=== PATIENT | female | born 1955 | race Caucasian/White ===

== ENCOUNTER 2022-08-21 05:35 | Day surgery (SDC) | payer OTHER ==
[~2022-08-21] VITALS: Ht 162.6 cm; Wt 98.0 kg
[~2022-08-21 05:35] MED LIST: CEFAZOLIN SOD 1 GM/ ISO 50 ML PREMIX IV ONE
[2022-08-21] MEDS ORDERED: CEFAZOLIN SOD 1 GM in D5W 50 ML IV ONE (07:15)
[2022-08-21] MEDS ORDERED: METOCLOPRAMIDE HCL 10 MG/2 ML VIAL ONE (07:30)
[2022-08-21] MEDS ORDERED: MEPERIDINE 100 MG INJ. 100 MG/ML VIAL ONE (07:30)
[2022-08-21] MEDS ORDERED: BUPIVACAINE /PF 0.5% 30 ML VIAL ONE (07:30)
[2022-08-21] MEDS ORDERED: SUCCINYLCHOLINE CHLORIDE 20 MG/ML(QUELICIN) ONE (07:30)
[2022-08-21] MEDS ORDERED: LR 1,000 ML IV.SOLN IV ONE (07:30)
[2022-08-21] MEDS ORDERED: ROCURONIUM BROMIDE 10 MG/ML (ZEMURON) ONE (07:30)
[2022-08-21] MEDS ORDERED: PROPOFOL 200MG/ 20ML VIAL (DIPRIVAN) IV ONE (07:30)
[2022-08-21] MEDS ORDERED: NS IRRIG SOLN 1000 ML IR ONE (07:30)
[2022-08-21] MEDS ORDERED: fentaNYL CITRATE/PF 100 MCG/2 ML AMP ONE (07:30)
[2022-08-21] MEDS ORDERED: ceFAZolin SODIUM 1 GM VIAL ONE (07:30)
[2022-08-21] MEDS ORDERED: SUGAMMADEX SODIUM 200 MG/2 ML VIAL IV ONE (07:30)
[2022-08-21] MEDS ORDERED: NS 100 ML BAG ONE (07:30)
[2022-08-21] MEDS ORDERED: SEVOFLURANE 15 MIN GAS INH ONE (07:30)
[2022-08-21] MEDS ORDERED: LISI10TA29 PO (07:59)
[2022-08-21] MEDS ORDERED: METF-379 PO (08:01)
[2022-08-21] MEDS ORDERED: METF-833 PO (08:04)
[2022-08-21] MEDS ORDERED: SIMV40TA2 PO (08:05)
[2022-08-21] MEDS ORDERED: GABA-529 PO (08:06)
[2022-08-21] MEDS ORDERED: NAPR-688 PO (08:08)
[2022-08-21] MEDS ORDERED: MECL-225 PO (08:08)
[2022-08-21] MEDS ORDERED: ONDANSETRON HCL 4 MG/2 ML VIAL IVP PRN ×2 (08:15→10:15)
[2022-08-21] MEDS ORDERED: NACL 0.9% 1,000 ML IV SCH (08:15)
[2022-08-21] MEDS ORDERED: KETOROLAC TROMETHAMINE 30 MG VIAL IVP PRN (08:15)
[2022-08-21] MEDS ORDERED: HYDROmorphone 1 MG/ML INJ. CARTRIDGE IVP PRN ×2 (08:15→10:15)
[2022-08-21] MEDS ORDERED: METOCLOPRAMIDE HCL 10 MG/2 ML VIAL IVP PRN (08:15)
[2022-08-21] MEDS ORDERED: MEPERIDINE HCL/PF 25 MG/ML DISP.SYRIN IVP PRN (08:15)
[2022-08-21] MEDS ORDERED: ACETAMINOPHEN 325 MG TABLET PO PRN (10:15)
[2022-08-21] MEDS ORDERED: HYDROcodone/ACETAMIN 5-325 MG TAB (NORCO/ VICODIN) PO PRN (10:15)
[2022-08-21] MEDS ORDERED: HYDROmorphone 1 MG/ML INJ. CARTRIDGE ONE (10:28)
[2022-08-21] MEDS ORDERED: KETOROLAC TROMETHAMINE 30 MG VIAL ONE (11:03)
[2022-08-21 12:05] VITALS: BP_SYST 128
[2022-08-21 12:10] VITALS: BP_SYST 128
[2022-08-21] MEDS: D5/0.45 NS 1,000 ML IV SCH ×2 (13:00→18:36)
[2022-08-21] MEDS: CEFAZOLIN 1 GM IVPB PREMIX 50 ML IV SCH ×2 (13:38→21:30)
[2022-08-21] MEDS: HYDROcodone/ACETAMIN 5-325 MG TAB (NORCO/ VICODIN) PO PRN (14:44)
[2022-08-21 16:00] VITALS: BP_SYST 119
[2022-08-21 20:00] VITALS: BP_SYST 112
[2022-08-21] MEDS: FAMOTIDINE PF 20 MG/2 ML VIAL IVP SCH (21:30)
[2022-08-22 02:30] VITALS: BP_SYST 118
[2022-08-22] MEDS: HYDROcodone/ACETAMIN 5-325 MG TAB (NORCO/ VICODIN) PO PRN ×3 (05:48→16:41)
[2022-08-22] MEDS: D5/0.45 NS 1,000 ML IV SCH ×2 (06:15→16:15)
[2022-08-22 08:00] VITALS: BP_SYST 122
[2022-08-22] MEDS ORDERED: ENOXAPARIN SODIUM 30 MG/0.3 ML SYRINGE SUBCUT SCH (09:00)
[2022-08-22] MEDS: FAMOTIDINE PF 20 MG/2 ML VIAL IVP SCH (09:38)
[2022-08-22 09:46] VITALS: BP_SYST 125
[2022-08-22 11:24] VITALS: BP_SYST 121
[2022-08-22 15:53] VITALS: BP_SYST 114
[2022-08-22 16:14] VITALS: BP_SYST 114
== END 2022-08-22 17:05 | disposition home or self-care (01) ==
LOC: SMU 05:35 → SDS 05:35 → SMU 10:51 → SDS 08-22 17:05
PROVIDERS: ATTEND Colon & Rectal Surgery
DX: K42.0 Umbilical hernia with obstruction, without gangrene (principal); K43.6 Other and unspecified ventral hernia with obstruction, without gangrene; I10 Essential (primary) hypertension; E11.9 Type 2 diabetes mellitus without complications; E78.5 Hyperlipidemia, unspecified; E66.9 Obesity, unspecified; Z68.31 Body mass index [BMI] 31.0-31.9, adult; K21.9 Gastro-esophageal reflux disease without esophagitis; Z20.822 Contact with and (suspected) exposure to COVID-19; Z79.84 Long term (current) use of oral hypoglycemic drugs; Z79.899 Other long term (current) drug therapy
CPT/HCPCS: 36415 ×3; 87426 ×2; 49594; 82962; 88302; U0003; J3490 ×4; J0690 ×2; J1885; J2765; J2704; J0330; J3010; J1170; J2175; J7060; J7120; C1781 ×2; J1650